=== PATIENT | male | born 1955 | race Caucasian/White ===

== ENCOUNTER 2022-03-19 01:55 | Inpatient (IN) ==
[2022-03-19] MEDS: DILTIAZEM INJ 100 MG in SODIUM CHLORIDE 0.9% 100 ML IV SCH ×3 (07:30→20:16)
[2022-03-19] MEDS: NOREPINEPHRINE 8 MG in SODIUM CHLORIDE 0.9% 242 ML IV PRN ×2 (07:35→18:06)
[2022-03-19 08:26] LABS: Basophils % 0.2 % (0.0-0.8); Hematocrit 31.3 VOL% (42.0-52.0); Hemoglobin 10.1 GM/DL (14.0-18.0); Immature Granulocytes % 3.1 %; Immature Granulocytes Absolute 0.59 #; Lymphocytes # 0.1 10*3/uL (1.4-4.0); Lymphocytes % 0.6 % (21.2-54.2); Mean Corpuscular HGB Conc 32.3 GM/DL (32-36); Mean Corpuscular Volume 95.4 FL (87-102); Mean Platelet Volume 9.6 FL (9.6-12.0); Monocytes # 0.3 10*3/uL (0.11-0.8); Monocytes % 1.5 % (1.7-12.7); Neutrophils % 94.6 % (38.7-73.9); Platelet Count 142 T/CUMM (130-400); Red Blood Count 3.28 MC/CUMM (3.8-5.5); Red Cell Distribution Width 15.2 % (9.3-17.3); White Blood Count 19.3 T/CUMM (4-12)
[2022-03-19 08:45] LABS: Albumin 1.5 G/DL (3.4-5.0); Bilirubin,Total 0.9 MG/DL (0.20-1.00); Calcium 8.6 MG/DL (8.5-10.1); Osmolality,Calculated 271.7 MOS/KG (273-304); Potassium 4.3 MMOL/L (3.5-5.1)
[2022-03-19 08:57] LABS: Band Neutrophils 3 % (0-10); Hypochromia Slight; Microcytosis Slight; Platelet Estimate Adequate; Total Cells Counted 100
[2022-03-19] MEDS: SODIUM CHLORIDE 0.9% 1,000 ML IV SCH ×2 (09:49→20:50)
[2022-03-19] MEDS ORDERED: ONDANSETRON 4 MG/2 ML VIAL IV PRN (10:13)
[2022-03-19] MEDS ORDERED: ACETAMINOPHEN 325 MG TABLET PO PRN (10:13)
[2022-03-19] MEDS ORDERED: guaiFENesin/DM ER 600-30 MG TABLET PO PRN (10:13)
[2022-03-19 10:28] LABS: INR 1.1; PT Patient Result 11.6 SECS (10.1-12.1)
[2022-03-19] MEDS: ENOXAPARIN 40 MG/0.4 ML SYRINGE SUBCUT SCH (12:00)
[2022-03-19] MEDS: ALBUTEROL/IPRATROPIUM 3 ML NEB RESP TX SCH ×2 (12:15→19:12)
[2022-03-19] MEDS ORDERED: ALBUTEROL 2.5 MG/3 ML NEB RESP TX SCH (13:00)
[2022-03-19] MEDS ORDERED: LEVOFLOXACIN INJ 750 MG/150 ML PREMIX IV ONE (14:50)
[2022-03-19] MEDS: methylPREDNISolone SOD SUC 40 MG/1 ML VIAL IV SCH ×2 (15:43→21:01)
[2022-03-19] MEDS: cefTRIAXone 1,000 MG in SODIUM CHLORIDE 0.9% 100 ML IV SCH (17:36)
[2022-03-19] MEDS: FLUCONAZOLE 100 MG TABLET PO SCH (18:45)
[2022-03-20] MEDS: ALBUTEROL/IPRATROPIUM 3 ML NEB RESP TX SCH ×4 (00:06→19:27)
[2022-03-20] MEDS ORDERED: METOPROLOL TARTRATE 5 MG/5 ML VIAL IV ONE ×4 (00:59→07:48)
[2022-03-20] MEDS ORDERED: PHENYLEPHRINE DRIP 40 MG/250 ML PREMIX IV ONE (01:04)
[2022-03-20] MEDS: DILTIAZEM INJ 100 MG in SODIUM CHLORIDE 0.9% 100 ML IV SCH ×3 (02:13→22:08)
[2022-03-20 03:30] LABS: ABG Base Excess -4.1 MMOL/L (-2.5-2.5); ABG HCO3 20.8 MMOL/L (20-26); ABG Oxygen Saturation 89.5 % (95-100); ABG PCO2 25.1 MM HG (35-48); ABG PH 7.471 (7.35-7.45); ABG TCO2 16.6 MMOL/L (23-27); Allen Test Positive; Pt O2 Delivery Device Room Air
[2022-03-20] MEDS: methylPREDNISolone SOD SUC 40 MG/1 ML VIAL IV SCH ×4 (05:03→22:18)
[2022-03-20 06:01] LABS: Basophils % 0.1 % (0.0-0.8); Hematocrit 28.4 VOL% (42.0-52.0); Hemoglobin 9.4 GM/DL (14.0-18.0); Immature Granulocytes % 2.8 %; Immature Granulocytes Absolute 0.39 #; Lymphocytes # 0.1 10*3/uL (1.4-4.0); Lymphocytes % 0.8 % (21.2-54.2); Mean Corpuscular HGB Conc 33.1 GM/DL (32-36); Mean Corpuscular Volume 93.7 FL (87-102); Mean Platelet Volume 9.3 FL (9.6-12.0); Monocytes # 0.2 10*3/uL (0.11-0.8); Monocytes % 1.2 % (1.7-12.7); Neutrophils % 95.1 % (38.7-73.9); Platelet Count 115 T/CUMM (130-400); Red Blood Count 3.03 MC/CUMM (3.8-5.5); Red Cell Distribution Width 15.3 % (9.3-17.3)
[2022-03-20 06:24] LABS: Albumin 1.4 G/DL (3.4-5.0); Bilirubin,Total 0.6 MG/DL (0.20-1.00); Calcium 8.7 MG/DL (8.5-10.1); Osmolality,Calculated 268.5 MOS/KG (273-304); Potassium 3.5 MMOL/L (3.5-5.1); Total Protein 5.9 G/DL (6.4-8.2)
[2022-03-20 06:25] LABS: Band Neutrophils 3 % (0-10); Lymphocytes 2 % (20-55); Total Cells Counted 100
[2022-03-20] MEDS: SODIUM CHLORIDE 0.9% 1,000 ML IV SCH (07:16)
[2022-03-20] MEDS ORDERED: SODIUM CHLORIDE 0.9% 500 ML IV ONE (07:56)
[2022-03-20] MEDS ORDERED: MAGNESIUM SULF RIDER 2 GM/50 ML PREMIX IV PRN (08:01)
[2022-03-20] MEDS ORDERED: MAGNESIUM SULF RIDER 4 GM/100 ML PREMIX IV PRN (08:01)
[2022-03-20] MEDS: PANTOPRAZOLE 40 MG TABLET PO SCH (08:02)
[2022-03-20] MEDS: LEVOFLOXACIN 750 MG TABLET PO SCH (08:02)
[2022-03-20] MEDS: FLUCONAZOLE 100 MG TABLET PO SCH (08:02)
[2022-03-20] MEDS ORDERED: DIAZEPAM 5 MG TABLET PO ONE (08:14)
[2022-03-20] MEDS ORDERED: AMIODARONE INJ 150 MG in DEXTROSE 5% 100 ML IV ONE (08:36)
[2022-03-20] MEDS ORDERED: AMIODARONE 450 MG/9 ML VIAL IV ONE (08:37)
[2022-03-20] MEDS ORDERED: AMIODARONE 150 MG/3 ML VIAL ONE (08:37)
[2022-03-20] MEDS ORDERED: DIGOXIN 0.5 MG/2 ML AMP IV ONE (08:54)
[2022-03-20] MEDS: AMIODARONE INJ 450 MG in DEXTROSE 5% 241 ML IV SCH (09:03)
[2022-03-20] MEDS: PHENYLEPHRINE DRIP 40 MG/250 ML PREMIX IV PRN (09:05)
[2022-03-20] MEDS: ENOXAPARIN 40 MG/0.4 ML SYRINGE SUBCUT SCH (10:50)
[2022-03-20] MEDS: oxyCODONE/ACETAMINOPHEN 5-325 MG TABLET PO PRN ×2 (13:28→17:28)
[2022-03-20] MEDS: cefTRIAXone 1,000 MG in SODIUM CHLORIDE 0.9% 100 ML IV SCH (15:22)
[2022-03-20] MEDS ORDERED: DIAZEPAM 5 MG TABLET PO PRN (15:39)
[2022-03-20] MEDS ORDERED: oxyCODONE/ACETAMINOPHEN 5-325 MG TABLET PO PRN (16:15)
[2022-03-20] MEDS: DILTIAZEM 30 MG TABLET PO SCH ×2 (17:28→20:13)
[2022-03-20] MEDS: ZINC OXIDE PASTE 113 GM TUBE TOP SCH (20:13)
[2022-03-21] MEDS: ALBUTEROL/IPRATROPIUM 3 ML NEB RESP TX SCH ×4 (01:08→19:03)
[2022-03-21] MEDS: AMIODARONE INJ 450 MG in DEXTROSE 5% 241 ML IV SCH ×2 (01:35→15:00)
[2022-03-21] MEDS ORDERED: FUROSEMIDE 40 MG/4 ML VIAL IV ONE ×3 (03:17→14:31)
[2022-03-21] MEDS ORDERED: FUROSEMIDE 40 MG/4 ML VIAL ONE (03:20)
[2022-03-21] MEDS: SODIUM CHLORIDE 0.9% 1,000 ML IV SCH ×2 (03:41→03:42)
[2022-03-21 04:12] LABS: Basophils % 0.1 % (0.0-0.8); Hematocrit 32.5 VOL% (42.0-52.0); Hemoglobin 10.7 GM/DL (14.0-18.0); Immature Granulocytes % 2.8 %; Immature Granulocytes Absolute 0.41 #; Lymphocytes # 0.1 10*3/uL (1.4-4.0); Lymphocytes % 0.6 % (21.2-54.2); Mean Corpuscular HGB Conc 32.9 GM/DL (32-36); Mean Corpuscular Volume 93.4 FL (87-102); Mean Platelet Volume 9.7 FL (9.6-12.0); Monocytes # 0.1 10*3/uL (0.11-0.8); Monocytes % 0.9 % (1.7-12.7); Neutrophils % 95.6 % (38.7-73.9); Platelet Count 141 T/CUMM (130-400); Red Blood Count 3.48 MC/CUMM (3.8-5.5); Red Cell Distribution Width 15.3 % (9.3-17.3); White Blood Count 14.8 T/CUMM (4-12)
[2022-03-21 04:12] LABS: Amorphous Crystals,Urine Occasional /HPF (Few); Bacteria,Urine Occasional /HPF (Few); Bilirubin,Urine Negative (Negative); Blood, Urine Negative (Negative); Glucose,Urine (UA) 150 mg/dL (Negative); Granular Casts,Urine 3 /LPF (0-1); Ketones,Urine Negative (Negative); Mucus,Urine Occasional /LPF (Occasional); Nitrite,Urine Negative (Negative); Protein,Urine 30 mg/dL (Negative); RBC,Urine <1 /HPF (0-4); Squamous Epithelial Cell,Urine Occasional /HPF (0-10); Urine Appearance Slightly Hazy (Clear); Urine Color Yellow (Yellow); Urine Specific Gravity 1.017 (1.001-1.035); Urine Urobilinogen < 2.0 eU/dL (<2.0)
[2022-03-21] MEDS: methylPREDNISolone SOD SUC 40 MG/1 ML VIAL IV SCH ×4 (04:12→21:28)
[2022-03-21 04:27] LABS: Calcium 8.5 MG/DL (8.5-10.1); Osmolality,Calculated 262.8 MOS/KG (273-304); Potassium 3.3 MMOL/L (3.5-5.1)
[2022-03-21 04:31] LABS: Lymphocytes 1 % (20-55); Microcytosis Slight; Nucleated Red Blood Cells 1 /100 WBC (0-5); Total Cells Counted 100
[2022-03-21 04:32] LABS: Platelet Estimate Adequate
[2022-03-21] MEDS: DILTIAZEM INJ 100 MG in SODIUM CHLORIDE 0.9% 100 ML IV SCH ×2 (05:01→11:59)
[2022-03-21] MEDS: LEVOFLOXACIN 750 MG TABLET PO SCH (09:24)
[2022-03-21] MEDS: PANTOPRAZOLE 40 MG TABLET PO SCH (09:24)
[2022-03-21] MEDS: MONTELUKAST 10 MG TABLET PO SCH (09:24)
[2022-03-21] MEDS: FLUCONAZOLE 100 MG TABLET PO SCH (09:25)
[2022-03-21] MEDS: DILTIAZEM 30 MG TABLET PO SCH ×3 (09:25→19:19)
[2022-03-21] MEDS: MEGESTROL 400 MG/10 ML UDCUP PO SCH (09:25)
[2022-03-21] MEDS: ZINC OXIDE PASTE 113 GM TUBE TOP SCH ×2 (09:27→21:22)
[2022-03-21 09:39] LABS: Arterial Base Excess iSTAT -7 MMOL/L (-2.5-2.5); Arterial Bicarbonate iSTAT 16.5 MMOL/L (20-26); Arterial O2 Saturation iSTAT 86 % (95-100); Arterial PCO2 iSTAT 28 MM HG (35-48); Arterial PO2 iSTAT 51 MM HG (80-95); Arterial Total CO2 iSTAT 17 MMO/L (23-27); Arterial pH iSTAT 7.378 (7.35-7.45)
[2022-03-21] MEDS: ENOXAPARIN 40 MG/0.4 ML SYRINGE SUBCUT SCH (10:10)
[2022-03-21] MEDS ORDERED: DIGOXIN 0.5 MG/2 ML AMP IV ONE (10:46)
[2022-03-21] MEDS ORDERED: MAGNESIUM SULF RIDER 2 GM/50 ML PREMIX IV ONE (11:01)
[2022-03-21] MEDS: POTASSIUM CHLORIDE RIDER 10 MEQ/100 ML PREMIX IV PRN ×4 (12:00→15:00)
[2022-03-21] MEDS: ALPRAZolam 0.5 MG TABLET PO PRN (15:16)
[2022-03-21] MEDS: cefTRIAXone 1,000 MG in SODIUM CHLORIDE 0.9% 100 ML IV SCH (15:17)
[2022-03-21] MEDS: DILTIAZEM 60 MG TABLET PO SCH ×2 (17:55→21:07)
[2022-03-21 18:08] LABS: Arterial Base Excess iSTAT -6 MMOL/L (-2.5-2.5); Arterial Bicarbonate iSTAT 17.6 MMOL/L (20-26); Arterial O2 Saturation iSTAT 82 % (95-100); Arterial PCO2 iSTAT 29 MM HG (35-48); Arterial PO2 iSTAT 46 MM HG (80-95); Arterial Total CO2 iSTAT 19 MMO/L (23-27); Arterial pH iSTAT 7.393 (7.35-7.45)
[2022-03-21] MEDS ORDERED: ETOMIDATE 20 MG/10 ML VIAL IV ONE ×2 (18:14→18:20)
[2022-03-21] MEDS ORDERED: SUCCINYLCHOLINE 200 MG/10 ML VIAL ONE (18:14)
[2022-03-21] MEDS ORDERED: SUCCINYLCHOLINE 200 MG/10 ML VIAL IV ONE (18:20)
[2022-03-21] MEDS: MIDAZOLAM 100 MG in SODIUM CHLORIDE 0.9% 80 ML IV PRN (19:14)
[2022-03-21 19:27] LABS: Arterial Base Excess iSTAT -6 MMOL/L (-2.5-2.5); Arterial Bicarbonate iSTAT 20.6 MMOL/L (20-26); Arterial O2 Saturation iSTAT 100 % (95-100); Arterial PCO2 iSTAT 46 MM HG (35-48); Arterial PO2 iSTAT 339 MM HG (80-95); Arterial Total CO2 iSTAT 22 MMO/L (23-27); Arterial pH iSTAT 7.255 (7.35-7.45)
[2022-03-22] MEDS: ALBUTEROL/IPRATROPIUM 3 ML NEB RESP TX SCH ×4 (01:03→19:29)
[2022-03-22] MEDS: AMIODARONE INJ 450 MG in DEXTROSE 5% 241 ML IV SCH ×2 (02:06→12:10)
[2022-03-22] MEDS: NOREPINEPHRINE 8 MG in SODIUM CHLORIDE 0.9% 242 ML IV PRN (03:58)
[2022-03-22 03:59] LABS: ABG Base Excess -7.2 MMOL/L (-2.5-2.5); ABG HCO3 18.6 MMOL/L (20-26); ABG Oxygen Saturation 99.5 % (95-100); ABG PCO2 36.8 MM HG (35-48); ABG PH 7.309 (7.35-7.45)
[2022-03-22 04:02] LABS: Basophils % 0.1 % (0.0-0.8); Hematocrit 28.4 VOL% (42.0-52.0); Hemoglobin 9.2 GM/DL (14.0-18.0); Immature Granulocytes % 0.9 %; Immature Granulocytes Absolute 0.13 #; Lymphocytes # 0.1 10*3/uL (1.4-4.0); Lymphocytes % 0.6 % (21.2-54.2); Mean Corpuscular HGB Conc 32.4 GM/DL (32-36); Mean Corpuscular Volume 95.3 FL (87-102); Mean Platelet Volume 10.1 FL (9.6-12.0); Monocytes # 0.1 10*3/uL (0.11-0.8); Monocytes % 0.9 % (1.7-12.7); NRBC # 0.06 10*3/uL; Neutrophils % 97.5 % (38.7-73.9); Platelet Count 150 T/CUMM (130-400); Red Blood Count 2.98 MC/CUMM (3.8-5.5); Red Cell Distribution Width 15.4 % (9.3-17.3); White Blood Count 15.2 T/CUMM (4-12)
[2022-03-22] MEDS: methylPREDNISolone SOD SUC 40 MG/1 ML VIAL IV SCH ×4 (04:08→22:08)
[2022-03-22 04:14] LABS: Calcium 8.5 MG/DL (8.5-10.1); Osmolality,Calculated 272.7 MOS/KG (273-304)
[2022-03-22 04:29] LABS: Lymphocytes 1 % (20-55); Platelet Estimate Adequate; Total Cells Counted 100
[2022-03-22 04:30] LABS: Misc Morphology F
[2022-03-22] MEDS: PHENYLEPHRINE DRIP 40 MG/250 ML PREMIX IV PRN (06:54)
[2022-03-22] MEDS: FLUCONAZOLE 100 MG TABLET PO SCH (09:55)
[2022-03-22] MEDS: DILTIAZEM 60 MG TABLET PO SCH ×3 (09:55→17:39)
[2022-03-22] MEDS: MONTELUKAST 10 MG TABLET PO SCH (09:55)
[2022-03-22] MEDS: LEVOFLOXACIN 750 MG TABLET PO SCH (09:56)
[2022-03-22] MEDS: PANTOPRAZOLE 40 MG TABLET PO SCH (09:56)
[2022-03-22] MEDS: ZINC OXIDE PASTE 113 GM TUBE TOP SCH ×2 (09:57→22:08)
[2022-03-22] MEDS: MEGESTROL 400 MG/10 ML UDCUP PO SCH (10:00)
[2022-03-22] MEDS: ENOXAPARIN 40 MG/0.4 ML SYRINGE SUBCUT SCH (11:00)
[2022-03-22] MEDS: DILTIAZEM INJ 100 MG in SODIUM CHLORIDE 0.9% 100 ML IV SCH (11:41)
[2022-03-22] MEDS: AMIODARONE 200 MG TABLET PO SCH ×2 (12:05→21:43)
[2022-03-22] MEDS ORDERED: DIGOXIN 0.25 MG TABLET PO SCH (13:00)
[2022-03-22] MEDS: cefTRIAXone 1,000 MG in SODIUM CHLORIDE 0.9% 100 ML IV SCH (17:40)
[2022-03-22] MEDS: DILTIAZEM 30 MG TABLET PO SCH (21:43)
[2022-03-23] MEDS: ALBUTEROL/IPRATROPIUM 3 ML NEB RESP TX SCH ×4 (00:11→18:47)
[2022-03-23] MEDS: PHENYLEPHRINE DRIP 40 MG/250 ML PREMIX IV PRN (02:10)
[2022-03-23] MEDS: methylPREDNISolone SOD SUC 40 MG/1 ML VIAL IV SCH ×3 (04:24→16:30)
[2022-03-23 04:44] LABS: ABG Base Excess -4.5 MMOL/L (-2.5-2.5); ABG HCO3 20.7 MMOL/L (20-26); ABG Oxygen Saturation 99.2 % (95-100); ABG PCO2 35.7 MM HG (35-48); ABG PH 7.363 (7.35-7.45)
[2022-03-23 04:59] LABS: Calcium 8.4 MG/DL (8.5-10.1); Osmolality,Calculated 280.1 MOS/KG (273-304); Potassium 3.7 MMOL/L (3.5-5.1)
[2022-03-23 05:20] LABS: Basophils % 0.1 % (0.0-0.8); Immature Granulocytes Absolute 0.26 #; Lymphocytes # 0.1 10*3/uL (1.4-4.0); Lymphocytes % 0.5 % (21.2-54.2); Mean Corpuscular Volume 96.5 FL (87-102); Mean Platelet Volume 9.8 FL (9.6-12.0); Monocytes # 0.1 10*3/uL (0.11-0.8); Monocytes % 0.8 % (1.7-12.7); NRBC # 0.03 10*3/uL; Neutrophils % 96.6 % (38.7-73.9); Platelet Count 107 T/CUMM (130-400); Red Blood Count 2.59 MC/CUMM (3.8-5.5); Red Cell Distribution Width 15.7 % (9.3-17.3); White Blood Count 12.9 T/CUMM (4-12)
[2022-03-23] MEDS: oxyCODONE/ACETAMINOPHEN 5-325 MG TABLET PO PRN (05:27)
[2022-03-23 05:35] LABS: Lymphocytes 1 % (20-55); Microcytosis Slight; Total Cells Counted 100
[2022-03-23 05:36] LABS: Platelet Estimate Adequate
[2022-03-23] MEDS: MIDAZOLAM 100 MG in SODIUM CHLORIDE 0.9% 80 ML IV PRN (07:09)
[2022-03-23] MEDS ORDERED: FUROSEMIDE 40 MG/4 ML VIAL IV ONE (09:02)
[2022-03-23] MEDS: FLUCONAZOLE 100 MG TABLET PO SCH (09:08)
[2022-03-23] MEDS: DILTIAZEM 30 MG TABLET PO SCH ×4 (09:09→20:25)
[2022-03-23] MEDS: MONTELUKAST 10 MG TABLET PO SCH (09:09)
[2022-03-23] MEDS: LEVOFLOXACIN 750 MG TABLET PO SCH (09:09)
[2022-03-23] MEDS: AMIODARONE 200 MG TABLET PO SCH ×2 (09:10→20:25)
[2022-03-23] MEDS: PANTOPRAZOLE 40 MG VIAL IV SCH (09:10)
[2022-03-23] MEDS: ZINC OXIDE PASTE 113 GM TUBE TOP SCH ×2 (09:11→21:42)
[2022-03-23] MEDS: ENOXAPARIN 40 MG/0.4 ML SYRINGE SUBCUT SCH (10:16)
[2022-03-23] MEDS: MEGESTROL 400 MG/10 ML UDCUP PO SCH (10:16)
[2022-03-23] MEDS: cefTRIAXone 1,000 MG in SODIUM CHLORIDE 0.9% 100 ML IV SCH (16:30)
[2022-03-24] MEDS: ALBUTEROL/IPRATROPIUM 3 ML NEB RESP TX SCH ×4 (00:40→19:15)
[2022-03-24] MEDS: methylPREDNISolone SOD SUC 40 MG/1 ML VIAL IV SCH ×4 (01:28→15:28)
[2022-03-24 06:30] LABS: ABG HCO3 26.2 MMOL/L (20-26); ABG Oxygen Saturation 97.9 % (95-100); ABG PCO2 36.9 MM HG (35-48); ABG PH 7.455 (7.35-7.45); ABG PO2 97.2 MM HG (80-95); ABG TCO2 24.2 MMOL/L (23-27)
[2022-03-24 06:40] LABS: Basophils % 0.1 % (0.0-0.8); Hematocrit 24.6 VOL% (42.0-52.0); Immature Granulocytes % 1.7 %; Immature Granulocytes Absolute 0.24 #; Lymphocytes # 0.1 10*3/uL (1.4-4.0); Lymphocytes % 0.4 % (21.2-54.2); Mean Corpuscular HGB Conc 32.5 GM/DL (32-36); Mean Corpuscular Volume 96.9 FL (87-102); Mean Platelet Volume 9.9 FL (9.6-12.0); Monocytes # 0.1 10*3/uL (0.11-0.8); Monocytes % 0.8 % (1.7-12.7); NRBC # 0.03 10*3/uL; Platelet Count 97 T/CUMM (130-400); Red Blood Count 2.54 MC/CUMM (3.8-5.5); Red Cell Distribution Width 15.4 % (9.3-17.3); White Blood Count 14.1 T/CUMM (4-12)
[2022-03-24 06:47] LABS: Calcium 8.5 MG/DL (8.5-10.1); Osmolality,Calculated 295.4 MOS/KG (273-304); Potassium 3.5 MMOL/L (3.5-5.1)
[2022-03-24 07:02] LABS: Total Cells Counted 100
[2022-03-24 07:03] LABS: Platelet Estimate Decreased
[2022-03-24] MEDS: oxyCODONE/ACETAMINOPHEN 5-325 MG TABLET PO PRN ×2 (07:40→16:50)
[2022-03-24] MEDS: POTASSIUM CHLORIDE 20 MEQ TABLET PO PRN (07:48)
[2022-03-24] MEDS: AMIODARONE 200 MG TABLET PO SCH (10:22)
[2022-03-24] MEDS: DILTIAZEM 30 MG TABLET PO SCH ×3 (10:22→16:19)
[2022-03-24] MEDS: PANTOPRAZOLE 40 MG VIAL IV SCH (10:23)
[2022-03-24] MEDS: ENOXAPARIN 40 MG/0.4 ML SYRINGE SUBCUT SCH (10:23)
[2022-03-24] MEDS: MEGESTROL 400 MG/10 ML UDCUP PO SCH (10:23)
[2022-03-24] MEDS: MONTELUKAST 10 MG TABLET PO SCH (10:23)
[2022-03-24] MEDS: ZINC OXIDE PASTE 113 GM TUBE TOP SCH (10:23)
[2022-03-24] MEDS: cefTRIAXone 1,000 MG in SODIUM CHLORIDE 0.9% 100 ML IV SCH (15:27)
[2022-03-24] MEDS: POTASSIUM PHOS/SOD PHOS POWDER 250 MG PACK PO SCH (15:27)
[2022-03-24] MEDS: MIDAZOLAM 100 MG in SODIUM CHLORIDE 0.9% 80 ML IV PRN (16:23)
[2022-03-25] MEDS: DILTIAZEM 30 MG TABLET PO SCH ×5 (00:10→20:34)
[2022-03-25] MEDS: methylPREDNISolone SOD SUC 40 MG/1 ML VIAL IV SCH ×4 (00:11→20:33)
[2022-03-25] MEDS: POTASSIUM PHOS/SOD PHOS POWDER 250 MG PACK PO SCH ×4 (00:11→20:34)
[2022-03-25] MEDS: AMIODARONE 200 MG TABLET PO SCH ×3 (00:11→20:34)
[2022-03-25] MEDS: ZINC OXIDE PASTE 113 GM TUBE TOP SCH ×3 (00:11→20:34)
[2022-03-25] MEDS: PHENYLEPHRINE DRIP 40 MG/250 ML PREMIX IV PRN (00:15)
[2022-03-25] MEDS: ALBUTEROL/IPRATROPIUM 3 ML NEB RESP TX SCH ×4 (00:25→18:50)
[2022-03-25] MEDS: oxyCODONE/ACETAMINOPHEN 5-325 MG TABLET PO PRN ×4 (01:34→23:27)
[2022-03-25 05:33] LABS: Basophils % 0.1 % (0.0-0.8); Hematocrit 24.8 VOL% (42.0-52.0); Hemoglobin 7.8 GM/DL (14.0-18.0); Immature Granulocytes % 1.1 %; Immature Granulocytes Absolute 0.15 #; Lymphocytes # 0.1 10*3/uL (1.4-4.0); Lymphocytes % 0.5 % (21.2-54.2); Mean Corpuscular HGB Conc 31.5 GM/DL (32-36); Mean Platelet Volume 9.8 FL (9.6-12.0); Monocytes # 0.1 10*3/uL (0.11-0.8); Monocytes % 0.8 % (1.7-12.7); NRBC # 0.02 10*3/uL; Neutrophils % 97.5 % (38.7-73.9); Platelet Count 100 T/CUMM (130-400); Red Blood Count 2.53 MC/CUMM (3.8-5.5); Red Cell Distribution Width 15.7 % (9.3-17.3); White Blood Count 14.2 T/CUMM (4-12)
[2022-03-25 05:36] LABS: ABG Base Excess 5.3 MMOL/L (-2.5-2.5); ABG HCO3 29.2 MMOL/L (20-26); ABG Oxygen Saturation 97.3 % (95-100); ABG PCO2 45.8 MM HG (35-48); ABG PH 7.427 (7.35-7.45); ABG PO2 90.9 MM HG (80-95); ABG TCO2 28.2 MMOL/L (23-27)
[2022-03-25 05:47] LABS: Calcium 8.4 MG/DL (8.5-10.1); Osmolality,Calculated 297.8 MOS/KG (273-304); Potassium 4.3 MMOL/L (3.5-5.1)
[2022-03-25 06:54] LABS: Anisocytosis 1+; Band Neutrophils 4 % (0-10); Lymphocytes 1 % (20-55); Platelet Estimate Decreased; Total Cells Counted 100
[2022-03-25] MEDS: MONTELUKAST 10 MG TABLET PO SCH (08:00)
[2022-03-25] MEDS: PANTOPRAZOLE 40 MG VIAL IV SCH (08:01)
[2022-03-25] MEDS: MEGESTROL 400 MG/10 ML UDCUP PO SCH (08:51)
[2022-03-25] MEDS: ENOXAPARIN 40 MG/0.4 ML SYRINGE SUBCUT SCH (10:12)
[2022-03-25] MEDS: MIDAZOLAM 100 MG in SODIUM CHLORIDE 0.9% 80 ML IV PRN (13:54)
[2022-03-25] MEDS: cefTRIAXone 1,000 MG in SODIUM CHLORIDE 0.9% 100 ML IV SCH (15:07)
[2022-03-26] MEDS: ALBUTEROL/IPRATROPIUM 3 ML NEB RESP TX SCH ×4 (00:09→19:23)
[2022-03-26 04:09] LABS: ABG Base Excess 8.4 MMOL/L (-2.5-2.5); ABG HCO3 32.2 MMOL/L (20-26); ABG Oxygen Saturation 95.5 % (95-100); ABG PCO2 44.4 MM HG (35-48); ABG PH 7.478 (7.35-7.45); ABG TCO2 30.5 MMOL/L (23-27)
[2022-03-26 04:12] LABS: Basophils % 0.1 % (0.0-0.8); Hematocrit 26.1 VOL% (42.0-52.0); Hemoglobin 8.2 GM/DL (14.0-18.0); Immature Granulocytes % 1.3 %; Immature Granulocytes Absolute 0.16 #; Lymphocytes # 0.1 10*3/uL (1.4-4.0); Lymphocytes % 0.7 % (21.2-54.2); Mean Corpuscular HGB Conc 31.4 GM/DL (32-36); Mean Corpuscular Volume 98.5 FL (87-102); Mean Platelet Volume 9.8 FL (9.6-12.0); Monocytes # 0.1 10*3/uL (0.11-0.8); Monocytes % 0.8 % (1.7-12.7); NRBC # 0.02 10*3/uL; Neutrophils % 97.1 % (38.7-73.9); Platelet Count 93 T/CUMM (130-400); Red Blood Count 2.65 MC/CUMM (3.8-5.5); Red Cell Distribution Width 15.8 % (9.3-17.3); White Blood Count 12.5 T/CUMM (4-12)
[2022-03-26 04:29] LABS: Lymphocytes 1 % (20-55); Total Cells Counted 100
[2022-03-26 04:30] LABS: Microcytosis Slight
[2022-03-26 04:42] LABS: Calcium 8.4 MG/DL (8.5-10.1); Osmolality,Calculated 297.8 MOS/KG (273-304); Potassium 4.3 MMOL/L (3.5-5.1)
[2022-03-26 04:48] LABS: Phosphorous 2.1 MG/DL (2.5-4.9)
[2022-03-26] MEDS: methylPREDNISolone SOD SUC 40 MG/1 ML VIAL IV SCH ×3 (05:45→20:37)
[2022-03-26] MEDS: ZINC OXIDE PASTE 113 GM TUBE TOP SCH ×2 (08:05→20:44)
[2022-03-26] MEDS: DILTIAZEM 30 MG TABLET PO SCH ×4 (08:45→20:37)
[2022-03-26] MEDS: PANTOPRAZOLE 40 MG VIAL IV SCH (08:45)
[2022-03-26] MEDS: AMIODARONE 200 MG TABLET PO SCH ×2 (08:45→20:37)
[2022-03-26] MEDS: MONTELUKAST 10 MG TABLET PO SCH (08:45)
[2022-03-26] MEDS: POTASSIUM PHOS/SOD PHOS POWDER 250 MG PACK PO SCH ×3 (08:45→20:36)
[2022-03-26] MEDS: oxyCODONE/ACETAMINOPHEN 5-325 MG TABLET PO PRN ×3 (08:45→20:36)
[2022-03-26] MEDS: ENOXAPARIN 40 MG/0.4 ML SYRINGE SUBCUT SCH (10:50)
[2022-03-26] MEDS: MIDAZOLAM 100 MG in SODIUM CHLORIDE 0.9% 80 ML IV PRN (11:10)
[2022-03-26] MEDS: cefTRIAXone 1,000 MG in SODIUM CHLORIDE 0.9% 100 ML IV SCH (15:20)
[2022-03-27] MEDS: ALBUTEROL/IPRATROPIUM 3 ML NEB RESP TX SCH ×4 (00:10→19:14)
[2022-03-27 04:24] LABS: Basophils % 0.1 % (0.0-0.8); Hematocrit 28.5 VOL% (42.0-52.0); Hemoglobin 8.9 GM/DL (14.0-18.0); Immature Granulocytes % 1.6 %; Immature Granulocytes Absolute 0.21 #; Lymphocytes # 0.1 10*3/uL (1.4-4.0); Lymphocytes % 0.6 % (21.2-54.2); Mean Corpuscular HGB Conc 31.2 GM/DL (32-36); Mean Corpuscular Volume 97.9 FL (87-102); Mean Platelet Volume 9.9 FL (9.6-12.0); Monocytes # 0.1 10*3/uL (0.11-0.8); Monocytes % 0.7 % (1.7-12.7); NRBC # 0.03 10*3/uL; Platelet Count 85 T/CUMM (130-400); Red Blood Count 2.91 MC/CUMM (3.8-5.5); Red Cell Distribution Width 15.8 % (9.3-17.3); White Blood Count 13.4 T/CUMM (4-12)
[2022-03-27 04:31] LABS: ABG Base Excess 9.3 MMOL/L (-2.5-2.5); ABG HCO3 33.1 MMOL/L (20-26); ABG Oxygen Saturation 98.2 % (95-100); ABG PCO2 41.2 MM HG (35-48); ABG PH 7.514 (7.35-7.45); ABG TCO2 30.3 MMOL/L (23-27)
[2022-03-27] MEDS: methylPREDNISolone SOD SUC 40 MG/1 ML VIAL IV SCH ×3 (04:35→20:35)
[2022-03-27] MEDS: oxyCODONE/ACETAMINOPHEN 5-325 MG TABLET PO PRN ×2 (04:39→12:27)
[2022-03-27 04:42] LABS: Calcium 8.4 MG/DL (8.5-10.1); Osmolality,Calculated 309.3 MOS/KG (273-304); Phosphorous 1.9 MG/DL (2.5-4.9); Potassium 3.6 MMOL/L (3.5-5.1)
[2022-03-27 04:50] LABS: Band Neutrophils 1 % (0-10); Lymphocytes 1 % (20-55); Total Cells Counted 100
[2022-03-27 04:51] LABS: Hypochromia Slight; Microcytosis Slight
[2022-03-27 04:52] LABS: Polychromasia Slight
[2022-03-27] MEDS: DILTIAZEM 30 MG TABLET PO SCH ×4 (08:04→20:19)
[2022-03-27] MEDS: POTASSIUM CHLORIDE 20 MEQ TABLET PO PRN (08:05)
[2022-03-27] MEDS: MONTELUKAST 10 MG TABLET PO SCH (08:05)
[2022-03-27] MEDS: ALPRAZolam 0.5 MG TABLET PO PRN (08:05)
[2022-03-27] MEDS: AMIODARONE 200 MG TABLET PO SCH (08:05)
[2022-03-27] MEDS: POTASSIUM PHOS/SOD PHOS POWDER 250 MG PACK PO SCH ×3 (08:05→20:19)
[2022-03-27] MEDS: PANTOPRAZOLE 40 MG VIAL IV SCH (08:05)
[2022-03-27] MEDS ORDERED: POTASSIUM PHOSPHATE 30 MMOL in SODIUM CHLORIDE 0.9% 250 ML IV ONE (08:14)
[2022-03-27] MEDS: LEVOFLOXACIN 750 MG TABLET PER TUBE SCH (08:37)
[2022-03-27] MEDS: ZINC OXIDE PASTE 113 GM TUBE TOP SCH ×2 (08:38→20:19)
[2022-03-27] MEDS: ENOXAPARIN 40 MG/0.4 ML SYRINGE SUBCUT SCH (11:13)
[2022-03-27] MEDS: oxyCODONE/ACETAMINOPHEN 5-325 MG TABLET PO SCH ×2 (15:24→22:20)
[2022-03-27] MEDS: cefTRIAXone 1,000 MG in SODIUM CHLORIDE 0.9% 100 ML IV SCH (15:24)
[2022-03-27] MEDS ORDERED: cloNIDine 0.1 MG TABLET PER TUBE PRN (17:39)
[2022-03-27] MEDS: ALPRAZolam 0.25 MG TABLET PER TUBE SCH (20:19)
[2022-03-28] MEDS: ALBUTEROL/IPRATROPIUM 3 ML NEB RESP TX SCH ×4 (00:59→20:03)
[2022-03-28 03:51] LABS: ABG Base Excess 8.4 MMOL/L (-2.5-2.5); ABG HCO3 32.2 MMOL/L (20-26); ABG Oxygen Saturation 97.8 % (95-100); ABG PCO2 38.8 MM HG (35-48); ABG PH 7.524 (7.35-7.45); ABG PO2 99.1 MM HG (80-95); ABG TCO2 29.2 MMOL/L (23-27)
[2022-03-28 03:52] LABS: Basophils % 0.1 % (0.0-0.8); Hemoglobin 9.1 GM/DL (14.0-18.0); Immature Granulocytes % 1.6 %; Immature Granulocytes Absolute 0.28 #; Lymphocytes # 0.1 10*3/uL (1.4-4.0); Lymphocytes % 0.6 % (21.2-54.2); Mean Corpuscular HGB Conc 31.4 GM/DL (32-36); Mean Platelet Volume 10.3 FL (9.6-12.0); Monocytes # 0.1 10*3/uL (0.11-0.8); Monocytes % 0.8 % (1.7-12.7); Neutrophils % 96.9 % (38.7-73.9); Platelet Count 81 T/CUMM (130-400); Red Blood Count 2.99 MC/CUMM (3.8-5.5); Red Cell Distribution Width 15.9 % (9.3-17.3); White Blood Count 17.2 T/CUMM (4-12)
[2022-03-28 04:04] LABS: Calcium 7.7 MG/DL (8.5-10.1); Osmolality,Calculated 300.7 MOS/KG (273-304); Phosphorous 2.8 MG/DL (2.5-4.9); Potassium 3.9 MMOL/L (3.5-5.1)
[2022-03-28 04:11] LABS: Hypochromia Slight; Lymphocytes 1 % (20-55); Microcytosis Slight; Total Cells Counted 100
[2022-03-28 04:12] LABS: Platelet Estimate Decreased
[2022-03-28] MEDS: methylPREDNISolone SOD SUC 40 MG/1 ML VIAL IV SCH ×3 (06:05→21:15)
[2022-03-28] MEDS: oxyCODONE/ACETAMINOPHEN 5-325 MG TABLET PO SCH ×2 (06:08→16:08)
[2022-03-28] MEDS: ALPRAZolam 0.25 MG TABLET PER TUBE SCH ×2 (08:02→20:30)
[2022-03-28] MEDS: POTASSIUM PHOS/SOD PHOS POWDER 250 MG PACK PO SCH ×3 (08:02→20:31)
[2022-03-28] MEDS: PANTOPRAZOLE 40 MG VIAL IV SCH (08:03)
[2022-03-28] MEDS: AMIODARONE 200 MG TABLET PO SCH (08:03)
[2022-03-28] MEDS: MONTELUKAST 10 MG TABLET PO SCH (08:03)
[2022-03-28] MEDS: LEVOFLOXACIN 750 MG TABLET PER TUBE SCH (08:03)
[2022-03-28] MEDS: METOPROLOL TARTRATE 25 MG TABLET PO SCH ×2 (08:28→20:30)
[2022-03-28] MEDS ORDERED: DILTIAZEM 60 MG TABLET PO SCH (09:00)
[2022-03-28] MEDS: ENOXAPARIN 40 MG/0.4 ML SYRINGE SUBCUT SCH (11:03)
[2022-03-28] MEDS: DILTIAZEM 30 MG TABLET PO SCH ×3 (13:21→20:32)
[2022-03-28] MEDS: cefTRIAXone 1,000 MG in SODIUM CHLORIDE 0.9% 100 ML IV SCH (16:08)
[2022-03-28] MEDS: ZINC OXIDE PASTE 113 GM TUBE TOP SCH ×2 (18:03→20:31)
[2022-03-29] MEDS: ALBUTEROL/IPRATROPIUM 3 ML NEB RESP TX SCH ×4 (00:05→19:28)
[2022-03-29] MEDS: oxyCODONE/ACETAMINOPHEN 5-325 MG TABLET PO SCH ×4 (01:14→22:25)
[2022-03-29 04:41] LABS: Basophils % 0.1 % (0.0-0.8); Hematocrit 29.3 VOL% (42.0-52.0); Hemoglobin 9.5 GM/DL (14.0-18.0); Immature Granulocytes % 1.7 %; Immature Granulocytes Absolute 0.24 #; Lymphocytes # 0.1 10*3/uL (1.4-4.0); Lymphocytes % 0.9 % (21.2-54.2); Mean Corpuscular HGB Conc 32.4 GM/DL (32-36); Mean Corpuscular Volume 96.1 FL (87-102); Mean Platelet Volume 10.8 FL (9.6-12.0); Monocytes # 0.1 10*3/uL (0.11-0.8); Monocytes % 0.7 % (1.7-12.7); NRBC # 0.06 10*3/uL; Neutrophils % 96.6 % (38.7-73.9); Platelet Count 62 T/CUMM (130-400); Red Blood Count 3.05 MC/CUMM (3.8-5.5); Red Cell Distribution Width 15.7 % (9.3-17.3)
[2022-03-29 05:10] LABS: Calcium 7.8 MG/DL (8.5-10.1); Osmolality,Calculated 286.3 MOS/KG (273-304); Phosphorous 3.5 MG/DL (2.5-4.9); Potassium 3.6 MMOL/L (3.5-5.1)
[2022-03-29 05:13] LABS: Nucleated Red Blood Cells 1 /100 WBC (0-5); Platelet Estimate Decreased; Polychromasia Slight; Total Cells Counted 100
[2022-03-29] MEDS: AMIODARONE 200 MG TABLET PO SCH (08:17)
[2022-03-29] MEDS: DILTIAZEM 30 MG TABLET PO SCH (08:17)
[2022-03-29] MEDS: LEVOFLOXACIN 750 MG TABLET PO SCH (08:17)
[2022-03-29] MEDS: ALPRAZolam 0.25 MG TABLET PER TUBE SCH ×2 (08:17→22:25)
[2022-03-29] MEDS: METOPROLOL TARTRATE 25 MG TABLET PO SCH ×2 (08:17→22:25)
[2022-03-29] MEDS: MONTELUKAST 10 MG TABLET PO SCH (08:17)
[2022-03-29] MEDS: PANTOPRAZOLE 40 MG VIAL IV SCH (08:18)
[2022-03-29] MEDS: ZINC OXIDE PASTE 113 GM TUBE TOP SCH ×2 (08:18→22:25)
[2022-03-29] MEDS: POTASSIUM PHOS/SOD PHOS POWDER 250 MG PACK PO SCH ×3 (08:18→22:25)
[2022-03-29] MEDS: methylPREDNISolone SOD SUC 40 MG/1 ML VIAL IV SCH ×2 (10:01→22:25)
[2022-03-29] MEDS: DILTIAZEM CD 120 MG CAPSULE PO SCH (11:27)
[2022-03-29] MEDS: ENOXAPARIN 40 MG/0.4 ML SYRINGE SUBCUT SCH (11:28)
[2022-03-29] MEDS: cefTRIAXone 1,000 MG in SODIUM CHLORIDE 0.9% 100 ML IV SCH (15:40)
[2022-03-30] MEDS: ALBUTEROL/IPRATROPIUM 3 ML NEB RESP TX SCH ×4 (00:31→19:14)
[2022-03-30] MEDS: oxyCODONE/ACETAMINOPHEN 5-325 MG TABLET PO SCH ×3 (06:12→22:45)
[2022-03-30 06:20] LABS: Calcium 8.2 MG/DL (8.5-10.1); Osmolality,Calculated 288.3 MOS/KG (273-304); Potassium 3.6 MMOL/L (3.5-5.1)
[2022-03-30] MEDS: PANTOPRAZOLE 40 MG VIAL IV SCH (10:31)
[2022-03-30] MEDS: ALPRAZolam 0.25 MG TABLET PER TUBE SCH ×2 (10:32→21:44)
[2022-03-30] MEDS: DILTIAZEM CD 120 MG CAPSULE PO SCH (10:32)
[2022-03-30] MEDS: LEVOFLOXACIN 750 MG TABLET PO SCH (10:32)
[2022-03-30] MEDS: MONTELUKAST 10 MG TABLET PO SCH (10:32)
[2022-03-30] MEDS: METOPROLOL TARTRATE 25 MG TABLET PO SCH ×2 (10:32→21:45)
[2022-03-30] MEDS: POTASSIUM PHOS/SOD PHOS POWDER 250 MG PACK PO SCH ×3 (10:33→21:44)
[2022-03-30] MEDS: methylPREDNISolone SOD SUC 40 MG/1 ML VIAL IV SCH ×2 (10:34→21:59)
[2022-03-30] MEDS: AMIODARONE 200 MG TABLET PO SCH (10:36)
[2022-03-30] MEDS: ZINC OXIDE PASTE 113 GM TUBE TOP SCH ×2 (10:48→21:44)
[2022-03-30] MEDS: ENOXAPARIN 40 MG/0.4 ML SYRINGE SUBCUT SCH (10:51)
[2022-03-30] MEDS: cefTRIAXone 1,000 MG in SODIUM CHLORIDE 0.9% 100 ML IV SCH (16:05)
[2022-03-31] MEDS: ALBUTEROL/IPRATROPIUM 3 ML NEB RESP TX SCH ×4 (00:14→19:21)
[2022-03-31 06:07] LABS: Basophils % 0.1 % (0.0-0.8); Hematocrit 29.2 VOL% (42.0-52.0); Hemoglobin 9.6 GM/DL (14.0-18.0); Immature Granulocytes % 0.9 %; Immature Granulocytes Absolute 0.12 #; Lymphocytes # 0.1 10*3/uL (1.4-4.0); Lymphocytes % 0.9 % (21.2-54.2); Mean Corpuscular HGB Conc 32.9 GM/DL (32-36); Mean Corpuscular Volume 95.4 FL (87-102); Mean Platelet Volume 10.3 FL (9.6-12.0); Monocytes # 0.1 10*3/uL (0.11-0.8); Monocytes % 0.7 % (1.7-12.7); NRBC # 0.02 10*3/uL; Neutrophils % 97.4 % (38.7-73.9); Platelet Count 72 T/CUMM (130-400); Red Blood Count 3.06 MC/CUMM (3.8-5.5); Red Cell Distribution Width 15.3 % (9.3-17.3)
[2022-03-31 06:24] LABS: Calcium 7.9 MG/DL (8.5-10.1); Osmolality,Calculated 287.4 MOS/KG (273-304); Potassium 3.7 MMOL/L (3.5-5.1)
[2022-03-31] MEDS: oxyCODONE/ACETAMINOPHEN 5-325 MG TABLET PO SCH ×3 (06:38→22:26)
[2022-03-31 07:37] LABS: Lymphocytes 1 % (20-55); Total Cells Counted 100
[2022-03-31 07:38] LABS: Anisocytosis 1+
[2022-03-31 07:39] LABS: Hypochromia Slight; Platelet Estimate Decreased; Polychromasia Slight
[2022-03-31] MEDS: POTASSIUM PHOS/SOD PHOS POWDER 250 MG PACK PO SCH ×3 (09:16→21:16)
[2022-03-31] MEDS: AMIODARONE 200 MG TABLET PO SCH (09:16)
[2022-03-31] MEDS: METOPROLOL TARTRATE 25 MG TABLET PO SCH ×2 (09:16→21:15)
[2022-03-31] MEDS: LEVOFLOXACIN 750 MG TABLET PO SCH (09:16)
[2022-03-31] MEDS: MONTELUKAST 10 MG TABLET PO SCH (09:16)
[2022-03-31] MEDS: DILTIAZEM CD 120 MG CAPSULE PO SCH (09:17)
[2022-03-31] MEDS: PANTOPRAZOLE 40 MG VIAL IV SCH (09:18)
[2022-03-31] MEDS: ALPRAZolam 0.25 MG TABLET PER TUBE SCH ×2 (09:18→21:15)
[2022-03-31] MEDS: ZINC OXIDE PASTE 113 GM TUBE TOP SCH ×2 (10:13→21:21)
[2022-03-31] MEDS: NICOTINE 21 MG/24 HR PATCH TRANSDERM SCH (10:13)
[2022-03-31] MEDS: methylPREDNISolone SOD SUC 40 MG/1 ML VIAL IV SCH ×2 (11:24→19:52)
[2022-03-31] MEDS: ENOXAPARIN 40 MG/0.4 ML SYRINGE SUBCUT SCH (11:24)
[2022-03-31] MEDS ORDERED: methylPREDNISolone SOD SUC 40 MG/1 ML VIAL IV ONE (12:03)
[2022-03-31 12:28] LABS: Arterial Base Excess iSTAT 5 MMOL/L (-2.5-2.5); Arterial Bicarbonate iSTAT 28.9 MMOL/L (20-26); Arterial O2 Saturation iSTAT 97 % (95-100); Arterial PCO2 iSTAT 39 MM HG (35-48); Arterial PO2 iSTAT 82 MM HG (80-95); Arterial Total CO2 iSTAT 30 MMO/L (23-27); Arterial pH iSTAT 7.476 (7.35-7.45)
[2022-03-31] MEDS: cefTRIAXone 2,000 MG in SODIUM CHLORIDE 0.9% 100 ML IV SCH (16:01)
[2022-04-01] MEDS: ALBUTEROL/IPRATROPIUM 3 ML NEB RESP TX SCH ×4 (00:14→19:14)
[2022-04-01] MEDS: methylPREDNISolone SOD SUC 40 MG/1 ML VIAL IV SCH ×3 (03:02→20:06)
[2022-04-01 05:52] LABS: Basophils % 0.1 % (0.0-0.8); Hematocrit 29.9 VOL% (42.0-52.0); Hemoglobin 9.5 GM/DL (14.0-18.0); Immature Granulocytes % 0.8 %; Immature Granulocytes Absolute 0.13 #; Lymphocytes # 0.1 10*3/uL (1.4-4.0); Lymphocytes % 0.7 % (21.2-54.2); Mean Corpuscular HGB Conc 31.8 GM/DL (32-36); Mean Corpuscular Volume 95.8 FL (87-102); Monocytes # 0.1 10*3/uL (0.11-0.8); Monocytes % 0.8 % (1.7-12.7); NRBC # 0.02 10*3/uL; Neutrophils % 97.6 % (38.7-73.9); Platelet Count 83 T/CUMM (130-400); Red Blood Count 3.12 MC/CUMM (3.8-5.5); Red Cell Distribution Width 15.6 % (9.3-17.3); White Blood Count 15.4 T/CUMM (4-12)
[2022-04-01 06:04] LABS: Osmolality,Calculated 289.1 MOS/KG (273-304); Potassium 3.5 MMOL/L (3.5-5.1)
[2022-04-01 06:40] LABS: Lymphocytes 1 % (20-55); Microcytosis Slight; Total Cells Counted 100
[2022-04-01 06:41] LABS: Platelet Estimate Decreased
[2022-04-01] MEDS: METOPROLOL TARTRATE 25 MG TABLET PO SCH ×2 (08:39→22:54)
[2022-04-01] MEDS: ALPRAZolam 0.25 MG TABLET PER TUBE SCH ×2 (08:39→21:40)
[2022-04-01] MEDS: PANTOPRAZOLE 40 MG TABLET PO SCH (08:39)
[2022-04-01] MEDS: MONTELUKAST 10 MG TABLET PO SCH (08:39)
[2022-04-01] MEDS: AMIODARONE 200 MG TABLET PO SCH (08:39)
[2022-04-01] MEDS: POTASSIUM PHOS/SOD PHOS POWDER 250 MG PACK PO SCH ×3 (08:39→21:40)
[2022-04-01] MEDS: LEVOFLOXACIN 750 MG TABLET PO SCH (08:40)
[2022-04-01] MEDS: DILTIAZEM CD 120 MG CAPSULE PO SCH (08:40)
[2022-04-01] MEDS: oxyCODONE/ACETAMINOPHEN 5-325 MG TABLET PO SCH (08:42)
[2022-04-01] MEDS: NICOTINE 21 MG/24 HR PATCH TRANSDERM SCH (08:46)
[2022-04-01] MEDS: ZINC OXIDE PASTE 113 GM TUBE TOP SCH ×2 (08:46→21:41)
[2022-04-01] MEDS ORDERED: MORPHINE 2 MG/1 ML SYRINGE IV PRN (09:40)
[2022-04-01] MEDS: ENOXAPARIN 40 MG/0.4 ML SYRINGE SUBCUT SCH (11:19)
[2022-04-01] MEDS: cefTRIAXone 2,000 MG in SODIUM CHLORIDE 0.9% 100 ML IV SCH (16:23)
[2022-04-01] MEDS ORDERED: ZALEPLON 5 MG CAPSULE PO ONE (21:22)
[2022-04-02] MEDS: ALBUTEROL/IPRATROPIUM 3 ML NEB RESP TX SCH ×3 (00:14→13:23)
[2022-04-02] MEDS: methylPREDNISolone SOD SUC 40 MG/1 ML VIAL IV SCH ×2 (04:10→11:44)
[2022-04-02 05:54] LABS: Basophils % 0.1 % (0.0-0.8); Hematocrit 31.1 VOL% (42.0-52.0); Hemoglobin 10.1 GM/DL (14.0-18.0); Immature Granulocytes Absolute 0.14 #; Lymphocytes # 0.2 10*3/uL (1.4-4.0); Lymphocytes % 1.1 % (21.2-54.2); Mean Corpuscular HGB Conc 32.5 GM/DL (32-36); Mean Corpuscular Volume 94.5 FL (87-102); Mean Platelet Volume 10.7 FL (9.6-12.0); Monocytes # 0.1 10*3/uL (0.11-0.8); NRBC # 0.02 10*3/uL; Neutrophils % 96.8 % (38.7-73.9); Platelet Count 95 T/CUMM (130-400); Red Blood Count 3.29 MC/CUMM (3.8-5.5); Red Cell Distribution Width 15.7 % (9.3-17.3); White Blood Count 13.8 T/CUMM (4-12)
[2022-04-02 06:14] LABS: Calcium 7.7 MG/DL (8.5-10.1); Osmolality,Calculated 286.3 MOS/KG (273-304); Potassium 3.1 MMOL/L (3.5-5.1)
[2022-04-02 06:19] LABS: Nucleated Red Blood Cells 1 /100 WBC (0-5); Platelet Estimate Decreased; Total Cells Counted 100
[2022-04-02] MEDS ORDERED: POTASSIUM CHLORIDE 20 MEQ TABLET PO ONE (08:52)
[2022-04-02] MEDS: LEVOFLOXACIN 750 MG TABLET PO SCH (10:29)
[2022-04-02] MEDS: DILTIAZEM CD 120 MG CAPSULE PO SCH (10:30)
[2022-04-02] MEDS: AMIODARONE 200 MG TABLET PO SCH (10:30)
[2022-04-02] MEDS: ZINC OXIDE PASTE 113 GM TUBE TOP SCH (10:30)
[2022-04-02] MEDS: METOPROLOL TARTRATE 25 MG TABLET PO SCH (10:30)
[2022-04-02] MEDS: MONTELUKAST 10 MG TABLET PO SCH (10:31)
[2022-04-02] MEDS: PANTOPRAZOLE 40 MG TABLET PO SCH (10:31)
[2022-04-02] MEDS: NICOTINE 21 MG/24 HR PATCH TRANSDERM SCH (10:31)
[2022-04-02] MEDS: POTASSIUM PHOS/SOD PHOS POWDER 250 MG PACK PO SCH (10:31)
[2022-04-02] MEDS: ALPRAZolam 0.25 MG TABLET PER TUBE SCH (10:31)
[2022-04-02 12:05] VITALS: BP 104/68
[2022-04-02] MEDS: ENOXAPARIN 40 MG/0.4 ML SYRINGE SUBCUT SCH (12:59)
== END 2022-04-02 15:25 | disposition home health service (06) | DRG 870 ==
LOC: N.ICU 07:03 → SUATTDRO 07:03 → N.TELEN 03-29 10:35
PROVIDERS: ADMIT Internal Medicine; ATTEND Hospitalist